=== PATIENT | female | born 1955 | race Caucasian/White ===

== ENCOUNTER → 2017-12-23 | Outpatient (CLI) | payer OTHER | LOC: BMCIMAGING 09:26 | PROVIDERS: ATTEND Orthopaedic Surgery Hand Surgery | DX: S52.122A Displaced fracture of head of left radius, initial encounter for closed fracture (principal); X58.XXXA Exposure to other specified factors, initial encounter ==

== ENCOUNTER → 2018-01-05 | Outpatient (CLI) | payer OTHER | LOC: BMCIMAGING 09:07 | PROVIDERS: ATTEND Orthopaedic Surgery Hand Surgery | DX: S52.122D Displaced fracture of head of left radius, subsequent encounter for closed fracture with routine healing (principal) ==

== ENCOUNTER → 2018-01-10 | Outpatient (CLI) | payer OTHER | LOC: BMCIMAGING 15:13 | PROVIDERS: ATTEND Podiatrist Foot & Ankle Surgery | DX: S92.351D Displaced fracture of fifth metatarsal bone, right foot, subsequent encounter for fracture with routine healing (principal) ==

== ENCOUNTER → 2018-01-26 | Outpatient (CLI) | payer OTHER | LOC: BMCIMAGING 08:34 | PROVIDERS: ATTEND Orthopaedic Surgery Hand Surgery | DX: S52.122D Displaced fracture of head of left radius, subsequent encounter for closed fracture with routine healing (principal); S92.351D Displaced fracture of fifth metatarsal bone, right foot, subsequent encounter for fracture with routine healing ==

== ENCOUNTER → 2018-02-23 | Outpatient (CLI) | payer OTHER | LOC: BMCIMAGING 08:20 | PROVIDERS: ATTEND Orthopaedic Surgery Hand Surgery | DX: Z09 Encounter for follow-up examination after completed treatment for conditions other than malignant neoplasm (principal); S52.125A Nondisplaced fracture of head of left radius, initial encounter for closed fracture ==

== ENCOUNTER → 2018-05-11 | Outpatient (CLI) | payer OTHER | LOC: BMCIMAGING 07:46 | PROVIDERS: ATTEND Orthopaedic Surgery Hand Surgery | DX: S52.125D Nondisplaced fracture of head of left radius, subsequent encounter for closed fracture with routine healing (principal) ==